=== PATIENT | male | born 1970 | race Caucasian/White ===

== ENCOUNTER 2018-11-19 20:11 | Emergency (ER) | payer OTHER ==
[~2018-11-19] VITALS: Ht 180.3 cm; Wt 113.4 kg
[2018-11-19 20:29] VITALS: BP_SYST 150
--- NOTE | 2018-11-19 20:34 | NUR ---
Patient to ER bed 6 to gown for evaluation. Side rails up
--- NOTE | 2018-11-19 20:35 | NUR ---
Florinda Wyman RN ADVANCED bedside for Pt eval
--- NOTE | 2018-11-19 20:36 | NUR ---
Pt BIB family to ED C/O traumatic onset of acute, constant, moderate, aching, pain and wound to the right index finger s/p dog bite by his neighbors [place] (vaccinated) two days ago. Has been applying band aid with mild relief. Last tetanus unknown. No other injuries and or complaints noted. VSS no s/s of acute distress. Resting on gurney with rails up
[2018-11-19] MEDS ORDERED: DIPH-TET-PERTUS Vaccine 0.5 ML VIAL (ADACEL) I.M. ONE (20:45)
[2018-11-19] MEDS ORDERED: AMOXICILLIN/CLAVULANATE POTASSIUM 875 MG TABLET PO ONE (20:45)
[2018-11-19] MEDS ORDERED: MUPIROCIN 2% TOPICAL OINTMENT 22 GM TP ONE (20:45)
[2018-11-19] MEDS ORDERED: BACITRACIN 1 GM OINT TP ONE (21:15)
--- NOTE | 2018-11-19 21:15 | NUR ---
Pt gave basic info regarding the dog bite incident, however, does not wish to report anything negative upon the dog and or the institutional asset manager. Therefore gave the responses "I Don't Know." to the 2nd half of the Animal Bite Report
[2018-11-19 21:30] VITALS: BP_SYST 140
--- NOTE | 2018-11-19 21:30 | NUR ---
Patient given written and verbal discharge instructions and verbalizes understanding. ER MD discussed with patient the results and treatment provided. Patient in stable condition. ID arm band removed. Rx of Mupirocin Oint, Augmentin, and Motrin given. Patient educated on pain management and to follow up with PMD. Pain Scale 0/10 Opportunity for questions provided and answered. Medication side effect fact sheet provided.
== END 2018-11-19 21:30 | disposition home or self-care (01) ==
LOC: SED 20:11
DX: S61.230A Puncture wound without foreign body of right index finger without damage to nail, initial encounter (principal); I10 Essential (primary) hypertension; F17.210 Nicotine dependence, cigarettes, uncomplicated; Z71.6 Tobacco abuse counseling; W54.0XXA Bitten by dog, initial encounter; Y93.89 Activity, other specified; Y92.89 Other specified places as the place of occurrence of the external cause; Y99.8 Other external cause status
CPT/HCPCS: 73140-TC; 90715; 99283